=== PATIENT | female | born 1950 | race African-American/Black ===

== ENCOUNTER 2021-01-14 17:16 | Inpatient (IN) | payer MEDICARE ==
[~2021-01-14] VITALS: Ht 147.3 cm; Wt 73.9 kg
[2021-01-14 19:30] VITALS: BP 116/73
--- NOTE | 2021-01-14 19:30 | NUR ---
GPS RN-ADMISSION NOTES: ADMITTED A 70-YR OLD FEMALE, FROM [facility]. ADMITTED ON 5150 FOR GD. PER HOLD, PT DEMONSTRATES A DISORGANIZED AND TANGENTIAL THOUGHT PROCESS AND STATES "SHE ENTERED MY ROOM WITHOUT A DUMONT". THEY STOLE MY PURSE HER REASON FOR PRESENTATION. PT EXPRESSES PARANOID IDEATION TOWARDS STAFF AND RESIDENTS OF HER [facility] AND STATES "THEY ARE LISTENING TO MY CALLS". PT CANNOT EXPRESS A CLEAR PLAN FOR SELF CARE AND REPORTS SHE IS HOMELESS. UPON FACE TO FACE ASSESSMENT, PATIENT IS A/O2, WITH PERIODS OF FORGETFULNESS, ANXIOUS, EASILY GETS IRRITATED. PT WAS ADVISED OF HER HOLD. PT'S RIGHTS HANDBOOK AND A GUIDE TO PRESCRIPTION MEDICATIONS GIVEN. IN NO APPARENT DISTRESS NOTED. BELONGINGS WERE INVENTORIED AND CHECKED FOR CONTRABAND. PT. IS UNDER THE PSYCHIATRIC CARE OF DR. GONZALEZ ORDERS OBTAINED AND UNDER THE MEDICAL CARE OF DR. MARTIN. SKIN BODY ASSESSMENT DONE. NOTED WITH BILATERAL EXTREMITIES EDEMA/SWELLING/REDNESS. ELEVATED AFFECTED AREA WITH PILLOWS TOLERATED. DENIES PAIN OR DISCOMFORT AT THIS TIME. SAFETY PRECAUTIONS IN PLACE. BED LOCKED AND IN LOWEST POSITION. SIDE RAILS UP X2. WILL CONTINUE TO MONITOR Q15 MIN ROUNDS FOR SAFETY AND BEHAVIOR.
[2021-01-14] MEDS ORDERED: ASPI-1498 PO (20:13)
[2021-01-14] MEDS ORDERED: ATOR20TA PO (20:14)
[2021-01-14] MEDS ORDERED: BUME1TAB8 PO (20:15)
[2021-01-14] MEDS ORDERED: CARB-300 PO (20:17)
[2021-01-14] MEDS ORDERED: CLON0.5T4 PO (20:18)
[2021-01-14] MEDS ORDERED: CARV25TA2 PO (20:18)
[2021-01-14] MEDS ORDERED: CLON1TAB12 PO (20:19)
[2021-01-14] MEDS ORDERED: DIVA-78 PO (20:20)
[2021-01-14] MEDS ORDERED: DAPA10TA PO (20:21)
[2021-01-14] MEDS ORDERED: FURO-145 PO (20:22)
[2021-01-14] MEDS ORDERED: LEVO75TA7 PO (20:23)
[2021-01-14] MEDS ORDERED: OMEP20CA15 PO (20:24)
[2021-01-14] MEDS ORDERED: POTA20TA83 PO (20:25)
[2021-01-14] MEDS ORDERED: QUET200T PO (20:26)
[2021-01-14] MEDS ORDERED: BLOOD SUGAR DIAGNOSTIC 1 EACH STRIP IN ONE (20:30)
[2021-01-14] MEDS ORDERED: TEMAZEPAM 7.5 MG CAPSULE PO PRN (20:30)
[2021-01-14] MEDS ORDERED: ACETAMINOPHEN 325 MG TABLET PO PRN (20:30)
[2021-01-14] MEDS ORDERED: MAG HYDROX/AL HYDROX/SIMETH 30 ML UDC PO PRN (20:30)
[2021-01-14] MEDS ORDERED: MAGNESIUM HYDROXIDE 30 ML UDC PO PRN (20:30)
[2021-01-14 20:59] VITALS: BP 116/73
[2021-01-15] MEDS: LORAZEPAM 0.5 MG TABLET PO PRN (01:46)
--- NOTE | 2021-01-15 01:51 | NUR ---
GPS-RN NOTES: ANXIETY PATIENT C/O FEELING ANXIOUS. ADMINISTERED ATIVAN 0.5MG PO ORDERED. WILL CONTINUE TO MONITOR FOR PATIENT'S SAFETY.
--- NOTE | 2021-01-15 05:52 | NUR ---
GPS-RN NOTE: PATIENT REFUSED MRSA SWAB. EXPLAINED RISKS VS BENEFITS. PATIENT CONTINUED TO REFUSE. WILL ENDORSE TO DAY SHIFT NURSE FOR CONTINUITY OF CARE.
[2021-01-15 06:45] LABS: BASOPHILS % (AUTO) 0.4 % (0.0-2.0); EOSINOPHILS % (AUTO) 1.7 % (0.0-6.0); HEMATOCRIT 29 % (33-45); HEMOGLOBIN 9.7 g/dL (11.5-14.8); LYMPHOCYTES # (AUTO) 2.9 /CMM (0.8-4.8); LYMPHOCYTES % (AUTO) 43.2 % (20.0-44.0); MEAN CORPUSCULAR HGB CONC 33 g/dl (31.0-36.0); MEAN CORPUSCULAR VOLUME 101 fL (82-100); MONOCYTES # (AUTO) 0.8 /CMM (0.1-1.30); MONOCYTES % (AUTO) 12.4 % (2.0-12.0); NEUTROPHILS # (AUTO) 2.9 /CMM (1.8-8.9); NEUTROPHILS % (AUTO) 42.3 % (43.0-81.0); PLATELET COUNT (AUTO) 285 /CMM (150-450); RED BLOOD CELL COUNT(AUTO) 2.87 MIL/uL (4.0-5.2); WHITE BLOOD COUNT (AUTO) 6.8 K/uL (4.3-11.0)
[2021-01-15 07:00] LABS: CALCIUM, SERUM 8.5 mg/dL (8.5-10.1); CREATININE 0.7 mg/dL (0.6-1.3); POTASSIUM 2.9 mmol/L (3.5-5.1)
[2021-01-15] MEDS: PANTOPRAZOLE 40 MG TABLET.DR PO SCH (07:48)
[2021-01-15] MEDS: LEVOTHYROXINE SODIUM 75 MCG TABLET PO SCH (07:48)
[2021-01-15 08:00] VITALS: BP 131/73
[2021-01-15] MEDS: ASPIRIN EC 81 MG TABLET.DR PO SCH (08:40)
[2021-01-15] MEDS: CARBIDOPA/LEVODOPA 25/100 MG 1 UDTAB PO SCH ×4 (08:40→20:06)
[2021-01-15] MEDS: ATORVASTATIN 10 MG TABLET PO SCH (08:40)
[2021-01-15] MEDS: CARVEDILOL 12.5 MG TABLET PO SCH (08:40)
[2021-01-15] MEDS: POTASSIUM CHLORIDE 20 MEQ TAB.PRT.SR PO SCH ×3 (08:40→11:35)
[2021-01-15] MEDS ORDERED: BUMETANIDE (1 MG) 1 MG TABLET PO SCH (09:00)
[2021-01-15] MEDS: FUROSEMIDE 20 MG TABLET PO SCH (09:00)
[2021-01-15] MEDS ORDERED: OMEPRAZOLE 20 MG CAPSULE.DR PO SCH (09:00)
--- NOTE | 2021-01-15 11:24 | NUR ---
GPS/RN-NOTES RECEIVED VERBAL ORDER FROM KACY CARPIO TO D/C ILANA , CONTINUE LASIX 20MG P.O DAILY AND VENOUS DOPPLER ON BILATERAL LOWER EXTREMITIES. NOTED AND CARRIED OUT.
--- NOTE | 2021-01-15 11:29 | NUR ---
GPS/RN-NOTES LASIX 20MG P.O NOT ADMINISTER DUE TO BUMEX 1MG P.O WAS ADMINISTERED AROUND 0900AM. KACY CARPIO WAS AWARE.
--- NOTE | 2021-01-15 15:30 | NUR ---
GPS/RN-NOTES NOTED PATIENT ANXIOUS AND PARANOID. STATED" I NEED TO LEAVE THIS PLACE NOW THE POLICE CAME TO [facility] BECAUSE THEY ARE TRYING TO POISON MY WATER TO KILL ME THERE,I HAVE TO GO". RE DIRECTED AND REASSURED PATIENT.OFFERED ATIVAN BUT PATIENT REFUSED. WILL CONT. MONITORING FOR SAFETY AND BEHAVIOR.
--- NOTE | 2021-01-15 15:33 | NUR ---
Point of Contact: TIFFANY called and left voicemail to [facility] case managers, Doris Ndiaye [phone]. TIFFANY called the pt.s sister, Shilpi Gordon [phone] and left voicemail with call back number.
--- NOTE | 2021-01-15 15:34 | NUR ---
Initial Discharge plan: The pt. currently resides at [facility] (independent living) [address] [place] [address] . Per pt., he would like to live elsewhere but would return to [facility] if no other option is available. TIFFANY called [facility] and spoke with Communications And Signals Supervisor, Ray Contreras, who stated that the pt. is able to return once back to [facility]. TIFFANY will continue to collaborate with IDT to ensure safe & proper discharge planning.
[2021-01-15 16:00] VITALS: BP 96/59
[2021-01-15] MEDS: BLOOD SUGAR DIAGNOSTIC 1 EACH STRIP IN SCH ×2 (17:10→21:27)
--- NOTE | 2021-01-15 17:24 | NUR ---
GPS/RN-NOTES PATIENT STILL REFUSED MRSA SWAB DESPITE EXPLANATIONS HOSPITAL POLICIES. ATTEMPT X3. PATIENT GETS ANGRY AND ARGUMENTATIVE.
--- NOTE | 2021-01-15 18:53 | NUR ---
GPS/RN-NOTES PATIENT IN THE DAY ROOM UP THE WHEELCHAIR,CALM ,NO ACUTE DISTRESS NOTED.PATIENT ABLE TO WHEELED SELF IN THE UNIT. WILL ENDORSE TO INCOMING NURSE FOR CONTINUITY OF CARE.
[2021-01-15 20:30] VITALS: BP 144/67
[2021-01-15] MEDS: DIVALPROEX SODIUM 250 MG TABLET.DR PO SCH (23:39)
[2021-01-15] MEDS: ARIPIPRAZOLE 5 MG TABLET PO SCH (23:40)
[2021-01-16 08:00] VITALS: BP 133/63
[2021-01-16] MEDS: BLOOD SUGAR DIAGNOSTIC 1 EACH STRIP IN SCH (08:00)
[2021-01-16] MEDS: PANTOPRAZOLE 40 MG TABLET.DR PO SCH (08:00)
[2021-01-16] MEDS: LEVOTHYROXINE SODIUM 75 MCG TABLET PO SCH (08:00)
[2021-01-16] MEDS: ASPIRIN EC 81 MG TABLET.DR PO SCH (08:40)
[2021-01-16] MEDS: CARBIDOPA/LEVODOPA 25/100 MG 1 UDTAB PO SCH ×4 (08:40→21:33)
[2021-01-16] MEDS: FUROSEMIDE 20 MG TABLET PO SCH (08:40)
[2021-01-16] MEDS: POTASSIUM CHLORIDE 20 MEQ TAB.PRT.SR PO SCH (08:40)
[2021-01-16] MEDS: DIVALPROEX SODIUM 250 MG TABLET.DR PO SCH ×2 (08:40→21:33)
[2021-01-16] MEDS: ATORVASTATIN 10 MG TABLET PO SCH (08:40)
[2021-01-16] MEDS: CARVEDILOL 12.5 MG TABLET PO SCH ×2 (08:41→09:00)
[2021-01-16 09:10] LABS: CHLORIDE,URINE RANDOM 75 mmol/L (55-125); POTASSIUM RNDM,URINE 83 mmol/L (25-125); URINE SODIUM, RANDOM 26 mmol/l (40-220)
[2021-01-16] MEDS: ARIPIPRAZOLE 5 MG TABLET PO SCH ×2 (10:30→22:30)
--- NOTE | 2021-01-16 10:33 | NUR ---
GPS/RN-NOTES PATIENT WAS SELECTIVE WITH MEDICATIONS,REFUSED ABILIFY 5MG P.O AND COREG 25MG P.O. EXPLAINED RISK AND BENEFITS BUT PATIENT STATED " I DON'T HAVE HTN AND I'M NOT SCHIZOPHRENIA,I DON'T TAKE THOSE MEDICATIONS". OFFERED X3.
--- NOTE | 2021-01-16 11:29 | NUR ---
GPS/RN-NOTES RECEIVED T.O ORDER FROM KACY CARPIO TO D/C ACCU-CHECK,NOTED AND CARRIED OUT.
[2021-01-16 16:00] VITALS: BP 124/67
[2021-01-16 20:10] VITALS: BP 132/73
[2021-01-16 20:33] LABS: CALCIUM, SERUM 9.5 mg/dL (8.5-10.1); CREATININE 0.8 mg/dL (0.6-1.3); POTASSIUM 4.1 mmol/L (3.5-5.1)
[2021-01-16 20:43] VITALS: BP 132/73
--- NOTE | 2021-01-16 22:42 | NUR ---
RN NOTE: REFUSED ABILIFY PATIENT REFUSED TO TAKE ABILIFY ORDERED, STATED," MY FRIEND TAKES IT, IT HAS LOTS OF SIDE EFFECTS, I AM NOT GOING TO TAKE IT." DESPITE OF EXPLANATIONS, PT. CONTINUED TO REFUSE THE MEDICINE.
[2021-01-16] MEDS: LORAZEPAM 0.5 MG TABLET PO PRN (22:50)
--- NOTE | 2021-01-16 22:52 | NUR ---
RN NOTE: ANXIETY PATIENT VERBALIZED THAT SHE IS FEELING ANXIOUS & RESTLESS, PT. REQUESTED TO TAKE ATIVAN AT THIS TIME, PRN ATIVAN 0.5 MG 1 TAB PO ADMINISTERED. WILL CONTINUE TO MONITOR FOR ANY CHANGES.
[2021-01-17] MEDS: PANTOPRAZOLE 40 MG TABLET.DR PO SCH (07:30)
[2021-01-17] MEDS: LEVOTHYROXINE SODIUM 75 MCG TABLET PO SCH (07:30)
[2021-01-17 08:00] VITALS: BP 119/62
[2021-01-17] MEDS: ATORVASTATIN 10 MG TABLET PO SCH (09:00)
[2021-01-17] MEDS: CARBIDOPA/LEVODOPA 25/100 MG 1 UDTAB PO SCH ×4 (09:04→21:37)
[2021-01-17] MEDS: ASPIRIN EC 81 MG TABLET.DR PO SCH (09:04)
[2021-01-17] MEDS: POTASSIUM CHLORIDE 20 MEQ TAB.PRT.SR PO SCH (09:04)
[2021-01-17] MEDS: FUROSEMIDE 20 MG TABLET PO SCH (09:05)
[2021-01-17] MEDS: DIVALPROEX SODIUM 250 MG TABLET.DR PO SCH ×2 (09:05→21:37)
[2021-01-17] MEDS: CARVEDILOL 12.5 MG TABLET PO SCH (09:06)
[2021-01-17] MEDS: ARIPIPRAZOLE 5 MG TABLET PO SCH ×2 (10:30→22:30)
[2021-01-17 16:00] VITALS: BP 140/65
[2021-01-17 20:52] VITALS: BP 136/82
[2021-01-17] MEDS: LORAZEPAM 0.5 MG TABLET PO PRN (22:29)
--- NOTE | 2021-01-17 22:30 | NUR ---
GPS RN NOTES PATIENT REPORTED FEELING ANXIOUS AND REQUESTED FOR MEDICATION. ATIVAN 0.5MG 1TAB GIVEN PO PRN ORDERED AT 22:29. WILL CONTINUE TO MONITOR.
--- NOTE | 2021-01-17 22:34 | NUR ---
GPS RN NOTES PATIENT REFUSED 22:30 ABILIFY 5MG/1TAB PO, TOOK ALL OTHER PM MEDS. EDUCATION PROVIDED ON THE IMPORTANCE OF MEDICATION COMPLIANCE. WILL CONTINUE TO MONITOR.
--- NOTE | 2021-01-18 06:45 | NUR ---
GPS RN CLOSING NOTES: PATIENT SITTING IN W/C IN HER ROOM, AWAKE, ALERT AND ORIENTED X2. PATIENT SLEPT 8HR THIS SHIFT. WEEKLY SKIN ASSESSMENT DONE AND PICTURES PLACED IN PATIENT CHART. NO NEW SKIN ISSUES NOTED. NO C/O PAIN THIS SHIFT. NO S/S OF DISTRESS. RESPIRATION EVEN AND UNLABORED WITH EQUAL RISE AND FALL OF THE CHEST ON ROOM AIR. ALL PATIENT CARE NEEDS HAVE BEEN MET ANTICIPATED. BED IN LOWEST POSITION AND LOCKED WITH SIDE RAILS UP X2. WILL CONTINUE TO MONITOR FOR SAFETY, MOOD AND BEHAVIOR AND ENDORSE TO AM SHIFT.
[2021-01-18 08:00] VITALS: BP 119/60
[2021-01-18] MEDS: LEVOTHYROXINE SODIUM 75 MCG TABLET PO SCH (08:08)
[2021-01-18] MEDS: PANTOPRAZOLE 40 MG TABLET.DR PO SCH (08:08)
[2021-01-18] MEDS: ASPIRIN EC 81 MG TABLET.DR PO SCH (08:56)
[2021-01-18] MEDS: CARBIDOPA/LEVODOPA 25/100 MG 1 UDTAB PO SCH ×4 (08:57→21:40)
[2021-01-18] MEDS: CARVEDILOL 12.5 MG TABLET PO SCH (08:57)
[2021-01-18] MEDS: ATORVASTATIN 10 MG TABLET PO SCH (08:57)
[2021-01-18] MEDS: DIVALPROEX SODIUM 250 MG TABLET.DR PO SCH ×2 (08:57→21:39)
[2021-01-18] MEDS: FUROSEMIDE 20 MG TABLET PO SCH (08:57)
[2021-01-18] MEDS: POTASSIUM CHLORIDE 20 MEQ TAB.PRT.SR PO SCH (08:57)
[2021-01-18] MEDS: ARIPIPRAZOLE 5 MG TABLET PO SCH ×2 (10:30→22:30)
--- NOTE | 2021-01-18 10:35 | NUR ---
GPS RN NOTE: MED REFUSAL PT REFUSED ARIPIPRAZOLE 5 MG PO DUE AT 1030. EXPLAINED RISKS AND BENEFITS X 3. OFFERED X 3. STILL REFUSED. WILL CONTINUE TO MONITOR.
[2021-01-18 16:00] VITALS: BP 122/65
[2021-01-18 20:12] VITALS: BP 136/74
[2021-01-18] MEDS: LORAZEPAM 0.5 MG TABLET PO PRN (21:40)
--- NOTE | 2021-01-18 21:45 | NUR ---
GPS/RN NOTES PATIENT REQUESTING FOR ATIVAN. PATIENT GIVEN ATIVAN PO 0.5 MG. V/S ARE STABLE, PATIENT IN NO SIGNS OF DISTRESS.
--- NOTE | 2021-01-18 22:30 | NUR ---
GPS RN NOTE: MED REFUSAL PATIENT REFUSED ARIPIPRAZOLE 5 MG PO DUE AT 0. EXPLAINED RISKS AND BENEFITS X 3. OFFERED X 3. STILL REFUSED. WILL CONTINUE TO MONITOR.
[2021-01-19 08:00] VITALS: BP 143/81
[2021-01-19] MEDS: PANTOPRAZOLE 40 MG TABLET.DR PO SCH (08:05)
[2021-01-19] MEDS: LEVOTHYROXINE SODIUM 75 MCG TABLET PO SCH (08:05)
[2021-01-19] MEDS: FUROSEMIDE 20 MG TABLET PO SCH (08:51)
[2021-01-19] MEDS: ATORVASTATIN 10 MG TABLET PO SCH (08:51)
[2021-01-19] MEDS: ASPIRIN EC 81 MG TABLET.DR PO SCH (08:51)
[2021-01-19] MEDS: POTASSIUM CHLORIDE 20 MEQ TAB.PRT.SR PO SCH (08:52)
[2021-01-19] MEDS: CARBIDOPA/LEVODOPA 25/100 MG 1 UDTAB PO SCH ×4 (08:52→21:08)
[2021-01-19] MEDS: DIVALPROEX SODIUM 250 MG TABLET.DR PO SCH ×2 (08:52→21:08)
[2021-01-19] MEDS: CARVEDILOL 12.5 MG TABLET PO SCH (08:52)
[2021-01-19] MEDS: ARIPIPRAZOLE 5 MG TABLET PO SCH ×2 (10:30→22:30)
--- NOTE | 2021-01-19 12:51 | NUR ---
[facility] Ornamental Metal Erector ApprenticeResident In Diagnostic Radiology: Doris Ndiaye ([phone]) contacted the SW and stated that she wanted to speak to the SW about the pts discharge plan. SW stated that the plan is for the pt to return to her independent living. SW informed her that she is currently refusing her antipsychotic and so SW stated that the pt does not have a discharge plan at this time. biomass production manager stated that the Main office line is [phone] and pts psychiatrist is Dr. Eitan Infante and can be reached at [phone].
--- NOTE | 2021-01-19 14:03 | NUR ---
Probable Cause Hearing: Pts [id number] hold was upheld for grave disability.
[2021-01-19 16:00] VITALS: BP 134/88
[2021-01-19 20:00] VITALS: BP 136/73
[2021-01-19 20:10] VITALS: BP 136/73
[2021-01-19] MEDS: LORAZEPAM 0.5 MG TABLET PO PRN (22:16)
--- NOTE | 2021-01-19 22:32 | NUR ---
RN NOTE: REFUSED ABILIFY PATIENT REFUSED TO TAKE ABILIFY ORDERED X 3, DESPITE OF EXPLANATIONS, PT. CONTINUED TO REFUSE THE MEDICINE. DR. GONZALEZ WAS MADE AWARE DURING HIS ROUNDS AT GPS UNIT.
[2021-01-20 08:00] VITALS: BP 100/61
[2021-01-20] MEDS: LEVOTHYROXINE SODIUM 75 MCG TABLET PO SCH (08:27)
[2021-01-20] MEDS: ATORVASTATIN 10 MG TABLET PO SCH (08:28)
[2021-01-20] MEDS: ASPIRIN EC 81 MG TABLET.DR PO SCH (08:28)
[2021-01-20] MEDS: DIVALPROEX SODIUM 250 MG TABLET.DR PO SCH (08:28)
[2021-01-20] MEDS: CARBIDOPA/LEVODOPA 25/100 MG 1 UDTAB PO SCH ×4 (08:28→21:41)
[2021-01-20] MEDS: POTASSIUM CHLORIDE 20 MEQ TAB.PRT.SR PO SCH (08:29)
[2021-01-20] MEDS: CARVEDILOL 12.5 MG TABLET PO SCH (08:29)
[2021-01-20] MEDS: FUROSEMIDE 20 MG TABLET PO SCH (08:30)
[2021-01-20] MEDS: PANTOPRAZOLE 40 MG TABLET.DR PO SCH (08:30)
[2021-01-20] MEDS: ARIPIPRAZOLE 5 MG TABLET PO SCH (10:30)
--- NOTE | 2021-01-20 10:30 | NUR ---
RN NOTE: MEDICATION REFUSAL PT REFUSED 10:30 PADMINI. ATTEMPTED TO EDUCATE PT RE IMPORTANCE OF MEDICATION COMPLIANCE. PT CONT'D TO REFUSE X 3. WILL CONT TO MONITOR FOR SAFETY AND BEHAVIOR PER GPS PROTOCOL
[2021-01-20 16:00] VITALS: BP 131/74
[2021-01-20 20:00] VITALS: BP 160/65
[2021-01-20] MEDS: LORAZEPAM 0.5 MG TABLET PO PRN (22:00)
[2021-01-21] MEDS: LEVOTHYROXINE SODIUM 75 MCG TABLET PO SCH (07:47)
[2021-01-21] MEDS: PANTOPRAZOLE 40 MG TABLET.DR PO SCH (07:47)
[2021-01-21 08:00] VITALS: BP 125/68
[2021-01-21] MEDS: POTASSIUM CHLORIDE 20 MEQ TAB.PRT.SR PO SCH (08:57)
[2021-01-21] MEDS: ASPIRIN EC 81 MG TABLET.DR PO SCH (08:57)
[2021-01-21] MEDS: DIVALPROEX SODIUM 250 MG TABLET.DR PO SCH ×3 (08:57→16:55)
[2021-01-21] MEDS: FUROSEMIDE 20 MG TABLET PO SCH (08:57)
[2021-01-21] MEDS: ATORVASTATIN 10 MG TABLET PO SCH (08:58)
[2021-01-21] MEDS: CARVEDILOL 12.5 MG TABLET PO SCH (08:58)
[2021-01-21] MEDS: CARBIDOPA/LEVODOPA 25/100 MG 1 UDTAB PO SCH ×4 (09:07→21:09)
--- NOTE | 2021-01-21 15:08 | NUR ---
Facility Contact: SW called [facility] and left a voicemail to Ray Contreras about the pts discharge for the following day.
--- NOTE | 2021-01-21 15:24 | NUR ---
Menswear Salesperson: TIFFANY called Miriam ([phone]) with [facility] and informed her that the pt will be discharged tomorrow and will need transport. She stated that she will call the SW back with a plan.
[2021-01-21 16:00] VITALS: BP 104/61
--- NOTE | 2021-01-21 16:26 | NUR ---
SNF Referral: TIFFANY faxed a referral to [facility] with attn to Guy to the fax number: [phone].
[2021-01-21 20:04] VITALS: BP 129/99
[2021-01-21 20:24] VITALS: BP 129/99
[2021-01-21] MEDS: LORAZEPAM 0.5 MG TABLET PO PRN (21:26)
--- NOTE | 2021-01-21 21:29 | NUR ---
RN NOTE: ANXIETY PATIENT VERBALIZED THAT SHE IS FEELING ANXIOUS & RESTLESS & REQUESTED TO GET MEDICINE. PRN ATIVAN 0.5 MG 1 TAB PO GIVEN. WILL CONTINUE TO MONITOR
[2021-01-22] MEDS: LEVOTHYROXINE SODIUM 75 MCG TABLET PO SCH (07:59)
[2021-01-22] MEDS: PANTOPRAZOLE 40 MG TABLET.DR PO SCH (07:59)
[2021-01-22 08:00] VITALS: BP 142/71
[2021-01-22] MEDS: DIVALPROEX SODIUM 250 MG TABLET.DR PO SCH ×2 (08:20→12:32)
[2021-01-22 08:21] VITALS: BP 142/71
[2021-01-22] MEDS: FUROSEMIDE 20 MG TABLET PO SCH (08:21)
[2021-01-22] MEDS: CARVEDILOL 12.5 MG TABLET PO SCH (08:21)
[2021-01-22] MEDS: ASPIRIN EC 81 MG TABLET.DR PO SCH (08:21)
[2021-01-22] MEDS: ATORVASTATIN 10 MG TABLET PO SCH (08:21)
[2021-01-22] MEDS: CARBIDOPA/LEVODOPA 25/100 MG 1 UDTAB PO SCH ×2 (08:21→12:32)
[2021-01-22] MEDS: POTASSIUM CHLORIDE 20 MEQ TAB.PRT.SR PO SCH (08:21)
--- NOTE | 2021-01-22 10:43 | NUR ---
SNF Contact: Renato ([phone]) from [facility] contacted the SW and stated that the pt was accepted.
--- NOTE | 2021-01-22 11:30 | NUR ---
Dr. Velasquez gave an order to D/C hold and D/C to [facility]. To continue same meds including prn and to follow up with psych and medical doctors. Dr. Butcher made aware of the discharge and reconciled the meds.
--- NOTE | 2021-01-22 11:50 | NUR ---
Facility Contact: Ray Watson from [facility] called the SW and stated that the pt was not going to be accepted back because once the facility thought about her behaviors they realized that she is a high risk considering the threats that she made. Ray stated that the pts family preservation caseworker will be contacting the SW. Addendum: 01/22/21 at 1150 by TIFFANY SWIFT THIS NOTE TOOK PLACE ON 01/21/21 AT 8413
--- NOTE | 2021-01-22 12:09 | NUR ---
Clinical Trial AssistantProfessor Of Violin: SW received a call from Pal ([phone]), ed case manager from [facility], who stated that they do not know where to place the pt at this time and stated that the pt can be placed in a SNF if the SW can secure one.
--- NOTE | 2021-01-22 12:29 | NUR ---
Discharge Note: Pt will be discharged to [facility] ([facility]) located at [address], [place] [address]; . Pt will be transported via [facility] at 3PM. Upon discharge, the pt appears to be alert and oriented x3 (time, place, and self). Pt appears to be in a depressed mood and presents with a calm mood. Pt denies both suicidal and homicidal ideation as well as auditory and visual hallucinations. Pt appears to be ambulatory with an unsteady gait. Pt appears to be well groomed and appropriately dressed. Pt will continue to be under the care of her psychiatrist, Dr. Velasquez, located at [address] [place] [id number]; and insurance claim auditor, Dr. Melgar, located at [id number], [place] [address]; . The choice of vendor form and multidisciplinary exit care form were done, printed, signed, and given to the patient.
--- NOTE | 2021-01-22 15:30 | NUR ---
GPS/RN-DISCHARGE NOTES RECEIVED T.O DISCHARGE ORDER FROM DR. GONZALEZ ( PSYCHIATRIST) .PATIENT WAS DISCHARGE TO [facility] ([facility]) .DR. LUONG ( RETAIL AND PROMOTIONS COORDINATOR) ALSO MADE AWARE OF THE DISCHARGE WITH ORDERS. REPORT WAS GIVEN TO QUIQUE ( FACILITY CHARGE NURSE ) PATIENT DID NOT VERBALIZE SI/HI,DENIES VISUAL/AUDITORY HALLUCINATIONS AT THE TIME OF DISCHARGE. AWARE OF THE DISCHARGE. PATIENT LEFT THE UNIT IN STABLE CONDITION,A/OX3.ALL BELONGINGS WAS GIVEN BACK TO THE PATIENT. MASK WAS PROVIDED. PATIENT WAS ENT NURSE BY AMBULANCE VIA GURNEY WITH TWO STAFF ASSIST.
== END 2021-01-22 15:30 | DRG 885 ==
LOC: GPS 19:20
PROVIDERS: ADMIT Psychiatry & Neurology Psychiatry; ATTEND Internal Medicine
DX: F31.64 Bipolar disorder, current episode mixed, severe, with psychotic features (principal); I11.0 Hypertensive heart disease with heart failure; F29 Unspecified psychosis not due to a substance or known physiological condition; F41.9 Anxiety disorder, unspecified; I50.9 Heart failure, unspecified; G20 Parkinson's disease; K21.9 Gastro-esophageal reflux disease without esophagitis; E03.9 Hypothyroidism, unspecified; E87.6 Hypokalemia; D53.9 Nutritional anemia, unspecified; Z68.34 Body mass index [BMI] 34.0-34.9, adult; E66.9 Obesity, unspecified; E26.9 Hyperaldosteronism, unspecified; E78.5 Hyperlipidemia, unspecified
CPT/HCPCS: 36415; 71045-TC; 80048-TC; 80061-TC; 80164-TC; 82436-TC; 82962-TC; 84133-TC; 84300-TC; 85025-TC; 93970-TC; 97112-TC; 97530-TC